=== PATIENT | male | born 1975 | race Two or more races ===

== ENCOUNTER 2022-03-31 14:45 | Emergency (ER) | payer SELFPAY ==
[~2022-03-31] VITALS: Ht 188 cm; Wt 118.0 kg
[2022-03-31 14:57] VITALS: BP 138/85
[2022-03-31] MEDS ORDERED: DIPHTH,PERTUSS(ACELL),TET TOX 0.5 ML DISP.SYRIN. VAX IM ONE (15:30)
[2022-03-31] MEDS ORDERED: LIDOCAINE 1% Multi-Dose 20 ML VIAL. INJ ONE (15:45)
[2022-03-31] MEDS ORDERED: IBUP-1007 PO (16:24)
[2022-03-31] MEDS ORDERED: AMOX1TAB11 PO (16:24)
--- NOTE | 2022-03-31 16:24 | PHYS DOC ---
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 Patient denies loss of consciousness, denies loose teeth, denies numbness or tingling to his face or tongue. Reports his last tetanus immunization was greater than 5 years ago, does not take medications or have a primary healthcare provider. Patient reports his and his immunization was greater than 5 years ago. Patient denies other physical c omplaints or physical concerns. Review of Systems: Review of Systems: 14 body systems of review of systems have been reviewed. See HPI for pertinent positives and negative responses, otherwise all other systems are negative, nonpertinent or noncontributory. Constitutional: Negative except as outlined in HPI above. Skin: Negative except as outlined in HPI above. Eyes: Negative except as outlined in HPI above. HENT: Negative except as outlined in HPI above. Respiratory: Negative except as outlined in HPI above. Cardiovascular: Negative except as outlined in HPI above. GI: Negative except as outlined in HPI above. : Negative except as outlined in HPI above. Musculoskeletal: Negative except as outlined in HPI above. Integument: Negative except as outlined in HPI above. Neurologic: Negative except as outlined in HPI above. Endocrine: Negative except as outlined in HPI above. Lymphatic: Negative except as outlined in HPI above. Psychiatric: Negative except as outlined in HPI above. Heart Score: C/O Chest Pain: No Risk Factors: Risk Factors: DM, Current or recent (<one month) smoker, HTN, HLP, family history of CAD, obesity. Risk Scores: Score 0 - 3: 2.5% MACE over next 6 weeks - Discharge Home Score 4 - 6: 20.3% MACE over next 6 weeks - Admit for Clinical Observation Score 7 - 10: 72.7% MACE over next 6 weeks - Early Invasive Strategies Current Medications: Current Medications Medications (Trade) Dose Ordered Sig/Ernst Start Time Stop Time Status Last Admin Dose Admin Diphtheria/ Tetanus/Acell Pertussis (Boostrix) 0.5 ml ONCE ONCE 03/31/22 15:30 03/31/22 15:31 DC 03/31/22 15:56 0.5 ML Lidocaine HCl (Lidocaine 1% 20ml Vial) 20 ml 1X ONCE 03/31/22 15:45 03/31/22 15:48 DC 03/31/22 15:53 20 ML Allergies: Allergies: Allergies Coded Allergies Type Severity Reaction Last Updated Verified No Known Drug Allergies 03/31/22 No Physical Exam: PE: Constitutional: Well developed, well nourished, no acute distress, non-toxic appearance. 46-year-old male in no apparent distress. HENT: Normocephalic, atraumatic. There is a full skin thickness laceration of the lower lip outer skin surfaces measuring 1 cm in length with abrasion of skin, just to the left of center, the laceration extends through the vermilion border, there is an additional laceration just adjacent to the aforementioned laceration measuring 1 cm that extends inward to oral mucosa. Bleeding is controlled. There is no malocclusion, no teeth are loose. Teeth are intact, no fractures appreciated. Mild swelling to the lower lip at laceration site. Eyes: Conjunctiva normal, no discharge. Neck: Normal range of motion, no stridor. Cardiovascular: No cyanosis appreciated, distal cap refill less than 2 seconds. Lungs & Thorax: Patient is in no respiratory distress, no audible adventitious lung sounds appreciated. Abdomen: Nontender, no abnormalities noted. Skin: Warm, dry, no erythema, no rash. Back: No tenderness, no deformities. Extremities: No tenderness, no cyanosis, no clubbing, ROM intact, no edema. Neurologic: Alert and oriented X 3, normal motor function, normal sensory function, no focal deficits noted. Psychologic: Affect normal, judgement normal, mood normal. Current Patient Data: Vital Signs: Vital Signs Date Time Temp Pulse Resp B/P (MAP) Pulse Ox O2 Delivery O2 Flow Rate FiO2 03/31/22 14:57 98.3 89 16 138/85 (102) 97 Room Air 98.3 EKG: EKG: [] Radiology/Procedures: Radiology/Procedures: [] Course & Med Decision Making: Course & Med Decision Making Pertinent Labs and Imaging studies reviewed. (See chart for details) 46-year-old male, vital signs reviewed, presents to the emergency department for repair of lip laceration. Patient is tetanus immunization was brought up-to-date today with Tdap. See laceration repair note. Patient was given p.o. pain medication. Ice packs offered. Discussed suture care at home, follow-up with primary care, sutures out in 5 to 7 days, will start on antibiotic regimen Augmentin, discussed medications and side effects with patient. Patient gave verbal understanding of and is amenable to ED discharge planning. Discussed with the patient all findings and diagnostic testing as well as the need to follow-up with their primary care provider for further evaluation and treatment or return to the ED if any new or worsening symptoms. Strict return precautions were also discussed at length, the patient voiced understanding and agreement with the discharge planning. The patient was nontoxic in appearance, in no apparent distress, and hemodynamically stable at the time of disposition. Dragon Disclaimer: Dragon Disclaimer: This electronic medical record was generated, in whole or in part, using a voice recognition dictation system. Laceration Repair Lac Repair Indication: Lower lip laceration Time: 1615 Confirmed: Patient, procedure, side, and site correct. Consent: Patient, has given verbal consent. Description/repair Procedure: The patient was placed in the appropriate position and anesthesia around the laceration was achieved with 2 cc 1% lidocaine without epinephrine. The area was then Betadine and copious amounts of normal saline. The laceration was closed with 4 interrupted sutures using 6-0 nylon. The additional laceration was closed with 1 interrupted sutures using 6-0 nylon. The wound area was then dressed with bacitracin by ED nursing staff prior to discharge. Complexity: Single layer. Post procedure exam: Circulation, motor, sensory examination intact, bleeding controlled. Total repaired wound length: 2 cm. Other Items: There were no other items. The patient tolerated the procedure well. Complications: Laceration did extend through vermilion border, the vermilion border had skin abrasion, this made difficulty approximating vermilion border during laceration repair.. Performed by: Koko Hubbard [employer] Supervision: Dr. Springer was present for consult regarding the critical aspects of the procedure including closure and post procedure exam. Total time: 20 minutes. Departure Departure Impression: Primary Impression: Lip laceration Qualified Codes: S01.511A - Laceration without foreign body of lip, initial encounter Additional Impression: Need for Tdap vaccination Disposition: HOME / SELF CARE / HOMELESS Condition: GOOD Referrals: NO PCP (PCP) Patient Instructions: Facial Laceration, Laceration Care, Adult, Open Wound, Lip, [id number] Additional Instructions: You were seen today in the emergency department after one of your tools struck your lower lip causing 2 lacerations along with an abrasion of the skin over the lower lip. I repaired the outer lip laceration with 4 interrupted sutures, there is an additional laceration that extends into the inner lip that I repaired with 1 interrupted suture. These will require removal in 5 to 7 days. Because the laceration extends into the oral cavity, I did not repair the area of the inner lip as this may induce unwanted infection. As we discussed I am starting you on an antibiotic, please take as directed until complete to prevent any infection of your lip. Please continue to perform good dental care with teeth brushing, swish and spit with warm salt water to help with discomfort, you may continue to take [id number] Tylenol or Motrin for ongoing aches and pains. You may also use ice packs 30 minutes on and 30 minutes off to help reduce swelling and discomfort over the next 48 to 72 hours. Your tetanus immunization was brought up-to-date today with a medication called Tdap, please update your immunization records accordingly. Thank you for visiting our Emergency Department. It was a pleasure taking care of you today in the emergency department and we appreciate you trusting us with your care. If any additional problems come up don't hesitate to return to visit us. Please follow up with your primary care provider so they can plan additional care if needed and know about the problem that you had. If symptoms worsen come back to the Emergency Department. Any concerning symptoms that start such as chest pain, shortness of air, weakness or numbness on one side of the body, running high fevers or any other concerning symptoms return to the ER. Yared [facility] [address] [place] [address] [facility] [address] [place] [address] [facility] [address] [facility] [place] [address] [facility] [address] [place] [address] [facility] [address] [place] [address] [facility] [address] [place] [address] [address] [address] [place] [address] [facility] [address] [place] [address] [facility] [address] [place] [address] [facility] [address] [place] [address] Scripts Amoxicillin/Potassium Clav (AMOX TR-K CLV 875-125 MG TAB) 1 Each Tablet 1 TAB PO BID for 7 Days, #14 TAB 0 Refills Prov: KOKO BONILLA APRN 03/31/22 Ibuprofen (IBUPROFEN) 600 Mg Tablet 600 MG PO PRN Q6HRS PRN for INFLAMMATION, #20 TAB 0 Refills Prov: KOKO BONILLA APRN 03/31/22 KOKO BONILLA APRN March 31, 2022 16:24
== END 2022-03-31 16:32 | disposition home or self-care (01) ==
LOC: ER 14:45
DX: S01.511A Laceration without foreign body of lip, initial encounter (principal); F17.200 Nicotine dependence, unspecified, uncomplicated; F10.20 Alcohol dependence, uncomplicated; Y90.9 Presence of alcohol in blood, level not specified; W22.8XXA Striking against or struck by other objects, initial encounter; Y93.89 Activity, other specified; Y92.69 Other specified industrial and construction area as the place of occurrence of the external cause; Y99.0 Civilian activity done for income or pay
CPT/HCPCS: 12011; 90471; 90715; 99283; J3490